=== PATIENT | female | born 1950 | race Native Hawaiian/Other Pacific Islander ===

== ENCOUNTER 2016-08-01 09:08 | Outpatient (CLI) | payer OTHER ==
[~2016-08-01 09:08] MED LIST: FLUTMIS14 INH; LORAZEPAM0.5 MG PO; OMEPRAZOLE40 MG PO; TIOTCAP2 INH; ZANTAC 75 PO
== END 2016-08-01 19:47 | disposition home or self-care (01) ==
LOC: MAMMO 09:08
DX: Z12.31 Encounter for screening mammogram for malignant neoplasm of breast (principal)
CPT/HCPCS: G0202-TC

== ENCOUNTER 2016-09-02 10:05 | Outpatient (CLI) | payer OTHER ==
[2016-09-02 10:57] LABS: PLATELET COUNT 326 K/uL (152-353)
[2016-09-02 10:58] LABS: POTASSIUM 4.3 mmol/L (3.6-5.2); SODIUM 138 mmol/L (136-145)
== END 2016-09-02 11:05 | disposition home or self-care (01) ==
LOC: CT 10:05
PROVIDERS: Internal Medicine
DX: R51 Headache (principal)
CPT/HCPCS: 36415; 80053; 85027; 85651

== ENCOUNTER 2016-09-07 13:43 | Emergency (ER) | payer OTHER ==
[~2016-09-07] VITALS: Ht 152.4 cm; Wt 70.3 kg
[2016-09-07 15:15] VITALS: BP 159/72; TEMP 98
== END 2016-09-07 15:15 | disposition home or self-care (01) ==
LOC: ED 13:43
DX: R11.0 Nausea (principal)
CPT/HCPCS: 99282

== ENCOUNTER 2016-09-18 15:44 | Outpatient (CLI) | payer OTHER | END 2016-09-18 20:19 | disposition home or self-care (01) | LOC: MRI 15:44 | DX: H35.4 Peripheral retinal degeneration (principal); R53.83 Other fatigue | CPT/HCPCS: 36415; 82306; 82607; 82746; 85651; 86039; 86140; 86430 ==

== ENCOUNTER 2016-09-22 13:02 | Outpatient (CLI) | payer OTHER | END 2016-09-22 19:32 | disposition home or self-care (01) | LOC: US 13:02 | DX: I65.29 Occlusion and stenosis of unspecified carotid artery (principal) ==

== ENCOUNTER 2016-10-02 07:31 | Outpatient (CLI) | payer OTHER | END 2016-10-02 19:31 | disposition home or self-care (01) | LOC: RESP 07:31 | DX: R41.3 Other amnesia (principal) ==

== ENCOUNTER 2016-10-10 13:21 | Outpatient (CLI) | payer OTHER | END 2016-10-10 19:32 | disposition home or self-care (01) | LOC: MRI 13:21 | DX: I63.011 Cerebral infarction due to thrombosis of right vertebral artery (principal) ==